=== PATIENT | male | born 1990 | race Two or more races ===

== ENCOUNTER 2018-10-26 09:42 | Emergency (ER) | payer SELFPAY ==
[~2018-10-26] VITALS: Ht 175.3 cm; Wt 72.6 kg
--- NOTE | 2018-10-26 10:00 | NUR ---
ED Nurse Note: pt walked in due to epigstric pain that radiates to the back started 5:30 am today. pt described the pain as 9/10 sharp pain that comes and goes, pt stated he had 2 beers last night and denies eating any spicy food. pt denies vomiting and constipation or diarrhea. pt hooked on monitor with vs within normal limit. will continue to monitor.
[2018-10-26 10:02] VITALS: BP 144/93
[2018-10-26] MEDS ORDERED: Mylanta II UD 30ml ORAL ONE (10:15)
--- NOTE | 2018-10-26 10:15 | NUR ---
ED Nurse Note: pt was seen by tamra. is stabished on the right ac with good blood return, blood drawn, pt able to give urine sample and was sent to lab. pt medicated as ordered. pt able to tolerate po meds. will continue to monitor.
--- NOTE | 2018-10-26 10:15 | Emergency Room Report ---
History of Present Illness General Chief Complaint: Abdominal Pain Source: Patient Present Illness HPI The patient was awakened at 5 AM with epigastric pain. He tried taking Pepto- Bismol and also Tylenol. At one point he broke out in perspiration because the pain was so severe. At this time the pain is resolved. The patient does drink alcohol daily. He drank 3 beers last night. He denies any vomiting. He said no melena or hematochezia. He was somewhat short of breath last night when the pain was more severe but this was not significant. Denies any calf pain or edema. The patient smokes. There is no family history of cardiac disease. He knows of no hypertension diabetes or high cholesterol. The patient works in a stressful environment. No fevers, chills, sore throat, chest pain, palpitations, dysuria, joint pain, rashes, depression, anxiety, visual changes, headache. Allergies: Coded Allergies: No Known Allergies (Unverified , 10/26/18) Patient History Past Medical History: none, see triage record Past Surgical History: other - Hole in his lung repaired when he was born Social History: Reports: smoking, alcohol use Social History Narrative legal Reviewed Nursing Documentation: PMH: Agreed; PSxH: Agreed Nursing Documentation-PMH Past Medical History: No Stated History Review of Systems All Other Systems: negative except mentioned in HPI Physical Exam Vital Signs Date Time Temp Pulse Resp B/P (MAP) Pulse Ox O2 Delivery O2 Flow Rate FiO2 10/26/18 09:51 97.5 64 19 144/93 (110) 99 Room Air Sp02 EP Interpretation: reviewed, normal General Appearance: well appearing, no apparent distress, GCS 15 Head: normocephalic Eyes: bilateral eye normal inspection, bilateral eye PERRL, bilateral eye EOMI ENT: moist mucus membranes Neck: supple Respiratory: lungs clear, normal breath sounds, other - Surgical scar right chest Cardiovascular #1: regular rate, rhythm Cardiovascular #2: 2+ radial (R) Gastrointestinal: normal inspection, normal bowel sounds, non tender, no mass, non-distended Genitourinary: no CVA tenderness Musculoskeletal: back normal, gait/station normal, normal range of motion Neurologic: alert, oriented x3, grossly normal Psychiatric: mood/affect normal Skin: no rash Medical Decision Making Diagnostic Impression: Primary Impression: Gastritis Qualified Codes: K29.20 - Alcoholic gastritis without bleeding Additional Impressions: Esophageal spasm Elevated hemoglobin Situational stress ER Course Patient presents with epigastric pain that woke him up this morning with history of alcohol consumption and low cardiac risk factors. Differential includes acute myocardial infarction, angina, cardiac spasm, esophageal spasm, gastritis, GERD amongst others. Patient will be evaluated with EKG, chest x- ray and labs. The patient will be treated with Pepcid and Mylanta. Risk factors is smoking. EKG no injury. Hemoglobin elevated. Patient remains pain-free. Discussed results with patient. Also discussed the need for close outpatient follow-up. Patient stable for outpatient observation and treatment. Contacted patient regarding abnormal clavicle on the left. 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 Laboratory Tests Test 10/26/18 10:12 White Blood Count 11.9 K/UL (4.8-10.8) H Red Blood Count 5.62 M/UL (4.70-6.10) Hemoglobin 18.1 G/DL (14.2-18.0) *H Hematocrit 51.4 % (42.0-52.0) Mean Corpuscular Volume 92 FL (80-99) Mean Corpuscular Hemoglobin 32.2 PG (27.0-31.0) H Mean Corpuscular Hemoglobin Concent 35.2 G/DL (32.0-36.0) Red Cell Distribution Width 11.1 % (11.6-14.8) L Platelet Count 161 K/UL (150-450) Mean Platelet Volume 7.9 FL (6.5-10.1) Neutrophils (%) (Auto) 83.4 % (45.0-75.0) H Lymphocytes (%) (Auto) 9.8 % (20.0-45.0) L Monocytes (%) (Auto) 5.9 % (1.0-10.0) Eosinophils (%) (Auto) 0.4 % (0.0-3.0) Basophils (%) (Auto) 0.5 % (0.0-2.0) Prothrombin Time 10.0 SEC (9.30-11.50) Prothrombin Time INR 0.9 (0.9-1.1) PTT 25 SEC (23-33) Urine Color Yellow Urine Appearance Clear Urine pH 6 (4.5-8.0) Urine Specific [place] 1.015 (1.005-1.035) Urine Protein 3+ (NEGATIVE) H Urine Glucose (UA) Negative (NEGATIVE) Urine Ketones Negative (NEGATIVE) Urine Blood 4+ (NEGATIVE) H Urine Nitrite Negative (NEGATIVE) Urine Bilirubin Negative (NEGATIVE) Urine Urobilinogen 1 MG/DL (0.0-1.0) H Urine Leukocyte Esterase 1+ (NEGATIVE) H Urine RBC 15-20 /HPF (0 - 0) H Urine WBC 20-30 /HPF (0 - 0) H Urine Squamous Epithelial Cells Occasional /LPF Urine Bacteria Few /HPF (NONE) Sodium Level 136 MMOL/L (136-145) Potassium Level 4.4 MMOL/L (3.5-5.1) Chloride Level 104 MMOL/L (98-107) Carbon Dioxide Level 26 MMOL/L (21-32) Anion Gap 7 mmol/L (5-15) Blood Urea Nitrogen 11 mg/dL (7-18) Creatinine 1.2 MG/DL (0.55-1.30) Estimate Glomerular Filtration Rate > 60 mL/min (>60) Glucose Level 115 MG/DL (74-106) H Calcium Level 9.0 MG/DL (8.5-10.1) Total Bilirubin 0.6 MG/DL (0.2-1.0) Aspartate Amino Transferase (AST) 37 U/L (15-37) Alanine Aminotransferase (ALT) 41 U/L (12-78) Alkaline Phosphatase 79 U/L (46-116) Total Creatine Kinase 69 U/L (26-308) Troponin I 0.007 ng/mL (0.000-0.056) Total Protein 7.8 G/DL (6.4-8.2) Albumin 3.6 G/DL (3.4-5.0) Globulin 4.2 g/dL Albumin/Globulin Ratio 0.9 (1.0-2.7) L Lipase 115 U/L (73-393) EKG Diagnostic Results Rate: normal Rhythm: NSR ST Segments: no acute changes Rhythm Strip Diag. Results EP Interpretation: yes Rhythm: NSR, no PVC's, no ectopy Chest X-Ray Diagnostic Results Chest X-Ray Diagnostic Results : Chest X-Ray Ordered: Yes # of Views/Limited/Complete: 1 View Indication: Other EP Interpretation: Yes Interpretation: no consolidation, no effusion, no pneumothorax, other - Left clavicular defect Impression: Other Electronically Signed by: Electronically signed by Kavon Baldwin MD Last Vital Signs Date Time Temp Pulse Resp B/P (MAP) Pulse Ox O2 Delivery O2 Flow Rate FiO2 10/26/18 12:39 97.5 84 15 137/89 99 Room Air Status: improved Disposition: HOME, SELF-CARE Condition: Improved Scripts Mag Hydrox/Al Hydrox/Simeth (MAALOX MAXIMUM STRENGTH SUSP) 355 Ml Oral.susp 30 ML PO Q6HR PRN for epigastric pain, #240 ML Prov: Kavon Baldwin MD 10/26/18 Famotidine (PEPCID AC) 20 Mg Tablet 20 MG PO DAILY, #20 TAB Prov: Kavon Baldwin MD 10/26/18 Kavon Baldwin MD Oct 26, 2018 10:15
[2018-10-26 10:37] LABS: APPEARANCE,URINE CLEAR; BILIRUBIN, URINE NEGATIVE (NEGATIVE); GLUCOSE, URINE (UA) NEGATIVE (NEGATIVE); KETONES,URINE NEGATIVE (NEGATIVE); LEUKOCYTE ESTERASE ,URINE 1+ (NEGATIVE); NITRITE,URINE NEGATIVE (NEGATIVE); PH,URINE 6 (4.5-8.0); PROTEIN,URINE 3+ (NEGATIVE); UROBILINOGEN,URINE 1 MG/DL (0.0-1.0)
[2018-10-26 10:43] LABS: COLOR,URINE YELLOW
[2018-10-26 10:44] LABS: BASOPHILS % (AUTO) 0.5 % (0.0-2.0); EOSINOPHILS % (AUTO) 0.4 % (0.0-3.0); HEMATOCRIT 51.4 % (42.0-52.0); LYMPHOCYTES % (AUTO) 9.8 % (20.0-45.0); MEAN CORPUSCULAR VOLUME 92 FL (80-99); MONOCYTES % (AUTO) 5.9 % (1.0-10.0); NEUTROPHILS % (AUTO) 83.4 % (45.0-75.0); PLATELET COUNT 161 K/UL (150-450); RED BLOOD COUNT 5.62 M/UL (4.70-6.10); RED CELL DISTRIBUTION WIDTH 11.1 % (11.6-14.8); WHITE BLOOD COUNT 11.9 K/UL (4.8-10.8)
[2018-10-26 10:47] LABS: HEMOGLOBIN 18.1 G/DL (14.2-18.0)
[2018-10-26 10:49] LABS: ANION GAP 7 mmol/L (5-15); BLOOD UREA NITROGEN 11 mg/dL (7-18); CARBON DIOXIDE 26 MMOL/L (21-32); CHLORIDE 104 MMOL/L (98-107); CREATININE 1.2 MG/DL (0.55-1.30); POTASSIUM 4.4 MMOL/L (3.5-5.1); SODIUM 136 MMOL/L (136-145)
[2018-10-26 10:50] LABS: INR 0.9 (0.9-1.1)
[2018-10-26 10:52] LABS: ALANINE AMINOTRANSFERASE 41 U/L (12-78); ALBUMIN 3.6 G/DL (3.4-5.0); ALBUMIN/GLOBULIN RATIO 0.9 (1.0-2.7); ALKALINE PHOSPHATASE 79 U/L (46-116); ASPARTATE AMINO TRANSFERASE 37 U/L (15-37); BILIRUBIN,TOTAL 0.6 MG/DL (0.2-1.0); CREATINE KINASE 69 U/L (26-308)
[2018-10-26 11:37] VITALS: BP 148/92
[2018-10-26] MEDS ORDERED: PEPCID AC20 M2 PO (12:27)
[2018-10-26] MEDS ORDERED: MAALOX MAXIMUM355 M1 PO (12:27)
[2018-10-26 12:31] VITALS: BP 137/89
[2018-10-26 12:39] VITALS: BP 137/89
--- NOTE | 2018-10-26 12:39 | NUR ---
ER DISCHARGE NOTE: Patient is cleared to be discharged per ERMD, pt is aox4, on room air, with stable vital signs. pt was given dc and prescription instructions, pt was able to verbalize understanding, pt id band and iv site removed without complications. pt is able to ambulate with steady gait. pt took all belongings.
--- NOTE | 2018-10-26 14:59 | Diagnostic Imaging Report ---
Indication: Reason For Exam: CP Technique: Single AP view of the chest. Comparison: None. Findings: The cardiomediastinal silhouette is within normal limits. There is no focal consolidation, pneumothorax or pleural effusion. There is an incompletely evaluated proximal left clavicular abnormality, without clearly visualized left sternoclavicular joint. IMPRESSION: 1. No acute cardiopulmonary process. 2. Left proximal clavicular deformity, which is incompletely evaluated given single AP view. If there is clinical concern for acute fracture, recommend dedicated clavicular radiographs, or comparison with prior chest radiographs to determine acuity. Findings discussed via telephone with Dr. Baldwin at 1500 on 10/26/2018.
== END 2018-10-26 12:39 | disposition home or self-care (01) ==
LOC: EMR 10:23
DX: K29.20 Alcoholic gastritis without bleeding (principal); K22.4 Dyskinesia of esophagus; R79.89 Other specified abnormal findings of blood chemistry; F43.9 Reaction to severe stress, unspecified; F17.200 Nicotine dependence, unspecified, uncomplicated
CPT/HCPCS: 36415; 71045; 80053; 81003; 82550; 83690; 84484; 85025; 85610; 85730; 87086; 93005; 96361; 96374; 99284; S0028